=== PATIENT | female | born 1970 | race Caucasian/White ===

== ENCOUNTER 2018-03-18 06:39 | Emergency (ER) | payer OTHER, SELFPAY ==
[2018-03-18 06:45] VITALS: BP 124/57; PULSE 89; RESP 20
[2018-03-18] MEDS: EPINEPHrine 1 MG/ML AMPUL 0.3 MG IM (06:47)
[2018-03-18 06:51] VITALS: BP 121/61; PULSE 96; RESP 20; TEMP 36.8; O2SAT 99; BMI 27.3
--- NOTE | 2018-03-18 06:54 | ED_ITS ---
HPI - Allergic Reaction <Aislinn Faust DO - Last Filed: 03/18/18 18:19> General Chief complaint: Allergic Reaction Stated complaint: BREAKING OUT IN RASH, DIFFICULTY BREATHING Time Seen by Provider: 03/18/18 06:46 Source: patient Mode of arrival: ambulatory Limitations: no limitations History of Present Illness HPI narrative: Patient is a 47-year-old female who was out on her morning run she bent down to tie her shoe instantly felt like her throat was swelling lips feel big she is covered in hives. No prior history of anaphylactic reaction or allergic reaction. No nausea vomiting abdominal pain. MD complaint: allergic reaction Onset (ago): minute(s) Symptoms: rash, itching, lip swelling, difficulty swallowing, difficulty breathing, tongue swelling and hoarseness Severity: moderate Treatment prior to arrival: none Related Data Home Medications Medication Instructions Recorded Confirmed citalopram [Celexa] 10 mg PO QDAY #0 10/24/17 Previous Rx's Medication Instructions Recorded albuterol sulfate [Ventolin HFA] 2 puff INH Q4HP PRN #1 ea 02/26/18 prednisone See Label Instructions PO PER PKG 03/18/18 DIR #21 each Allergies Allergy/AdvReac Type Severity Reaction Status Date / Time No Known Drug Allergies Allergy Verified 03/18/18 08:35 Review of Systems <DO Patricia Rincon Last Filed: 03/18/18 18:19> Review of Systems All systems reviewed & are unremarkable except as noted in HPI and below Constitutional Denies chills, Denies fever(s), Denies lethargy and Denies weakness ENT Ears, Nose, Mouth, and Throat: Reports as per HPI Cardiovascular Denies chest pain, Denies irregular heart rhythm, Denies lightheadedness, Denies palpitations, Denies dyspnea, Denies dyspnea on exertion and Denies orthopnea Respiratory Denies cough, Denies dyspnea, Denies dyspnea on exertion, Denies stridor and Denies wheezing Integumentary/Breasts Reports as per HPI, Reports rash and Reports skin swelling Neurologic Denies weakness Endocrine Denies palpitations Allergic/Immunologic Denies wheezing Exam <DO Patricia Rincon Last Filed: 03/18/18 18:19> Const General: cooperative Nutritional Appearance: well nourished Orientation: alert, awake, oriented x3 and not confused Eyes Periorbital: periorbital findings abnormal bilaterally periorbital swelling and periorbital erythema Neck Neck: normal visual inspection, supple and No tracheal deviation Other: A slightly hoarse voice Resp Effort & Inspection: normal respiratory effort, no grunting, no nasal flaring and no retractions Other: No stridor, managing secretions Cardio Rate: regular rate Rhythm: regular rhythm Heart Sounds: no click, no gallops, no murmurs and no rubs Pulses: normal peripheral pulses GI Inspection: non-distended Palpation: soft, no hepatosplenomegaly, No guarding, No pulsatile mass and No tender Auscultation: normal bowel sounds Skin General: erythema, No mottling and No petechiae Other: Diffuse urticaria all over body Neuro General: alert, oriented x3, gait normal and no focal motor deficits Cranial Nerves: CN's II-XI intact bilaterally Speech: speech normal Motor: strength 5/5 throughout Sensory Exam: no sensory deficits noted MDM - Allergic Reaction <Aislinn Faust DO - Last Filed: 03/18/18 18:19> MDM Narrative Medical decision making narrative: Initial anaphylactic orders put in by myself. Patient signed out to Dr. Mora at shift change. Course <DO Patricia Rincon Last Filed: 03/18/18 18:19> Orders Ordered: Discontinued Medications Diphenhydramine HCl (Benadryl) 25 mg IV NOW ONE Stop: 03/18/18 06:47 Last Admin: 03/18/18 06:56 Dose: 25 mg Epinephrine HCl (Adrenalin) 0.3 mg IM NOW ONE Stop: 03/18/18 06:47 Last Admin: 03/18/18 06:47 Dose: 0.3 mg Famotidine (Pepcid) 20 mg in 50 mls @ 200 mls/hr IV NOW ONE Stop: 03/18/18 07:00 Last Infusion: 03/18/18 07:31 Dose: 0 mls/hr Admin: 03/18/18 06:56 Dose: 200 mls/hr Methylprednisolone (Solu-Medrol 125 Mg Vial) 125 mg IV NOW ONE Stop: 03/18/18 06:47 Last Admin: 03/18/18 06:56 Dose: 125 mg Last Vital Signs Temp 98.3 F 03/18/18 06:51 Pulse 86 03/18/18 09:17 Resp 18 03/18/18 09:17 BP 103/58 L 03/18/18 09:17 Pulse Ox 98 03/18/18 09:17 <Jonn Mora DO - Last Filed: 03/18/18 16:12> Orders Ordered: Discontinued Medications Diphenhydramine HCl (Benadryl) 25 mg IV NOW ONE Stop: 03/18/18 06:47 Last Admin: 03/18/18 06:56 Dose: 25 mg Epinephrine HCl (Adrenalin) 0.3 mg IM NOW ONE Stop: 03/18/18 06:47 Last Admin: 03/18/18 06:47 Dose: 0.3 mg Famotidine (Pepcid) 20 mg in 50 mls @ 200 mls/hr IV NOW ONE Stop: 03/18/18 07:00 Last Infusion: 03/18/18 07:31 Dose: 0 mls/hr Admin: 03/18/18 06:56 Dose: 200 mls/hr Methylprednisolone (Solu-Medrol 125 Mg Vial) 125 mg IV NOW ONE Stop: 03/18/18 06:47 Last Admin: 03/18/18 06:56 Dose: 125 mg Reevaluation(s) Reevaluation #1: Patient feeling much better after the above-stated medications. She no longer feels any tingling, fullness in her throat and denies any trouble breathing. Time: 07:37 Last Vital Signs Temp 98.3 F 03/18/18 06:51 Pulse 86 03/18/18 09:17 Resp 18 03/18/18 09:17 BP 103/58 L 03/18/18 09:17 Pulse Ox 98 03/18/18 09:17 Discharge Plan Departure Patient Disposition: Home, Self-Care Clinical Impression: Allergic reaction Discharge Date/Time: 03/18/18 09:20 Interventions: ED Discharge Assessment Last Done: 03/18/18 09:21 Instructions: DI for General Allergic Reactions Activity Restrictions/Additional Instructions: Please follow up closely with Dr. Peralta to ensure appropriate resolution of your symptoms. Additionally, it may be cohen to discuss the possibility of referral to an salsa dance instructor given the severity of your 1st allergic reaction. Take medications as directed Return to the emergency department for worsening or persistent symptoms Prescriptions: New prednisone 10 mg tablets,dose pack See Label Instructions PO PER PKG DIR Qty: 21 RF: 0 No Action citalopram [Celexa] 10 MG tablet 10 mg PO QDAY Qty: 0 RF: 0 albuterol sulfate [Ventolin HFA] 90 MCG/PUFF HFA aerosol inhaler 2 puff INH Q4HP PRNQty: 1 RF: 1 Referrals: Chelsea Peralta MD [Primary Care Provider] - Sign Out <Aislinn Faust DO - Last Filed: 03/18/18 18:19> Sign Out Provider Sign Out Attestation: Patient is signed out to Dr. Mora at shift change. Medications just administered will require re-evaluation, and close monitoring.
[2018-03-18] MEDS: diphenhydrAMINE 50 MG/ML VIAL 25 MG IV (06:56)
[2018-03-18] MEDS: FAMOTIDINE 20 MG/50 ML PIGGYBACK 200 MG IV (06:56)
[2018-03-18] MEDS: methylPREDNISolone 125 MG/2 ML VIAL IV (06:56)
[2018-03-18 07:35] VITALS: BP 119/72; PULSE 81; RESP 20; O2SAT 99
[2018-03-18 08:00] VITALS: BP 102/58; PULSE 78; RESP 14; O2SAT 98
[2018-03-18 08:35] VITALS: BP 102/66; PULSE 75; RESP 14; O2SAT 97
[2018-03-18 09:17] VITALS: BP 103/58; PULSE 86; RESP 18; O2SAT 98
== END 2018-03-18 09:20 | disposition home or self-care (01) ==
PROVIDERS: Emergency Provider Emergency Medicine; PCP Family Medicine
DX: T78.40XA Allergy, unspecified, initial encounter (principal)
CPT/HCPCS: 36591; 96372; 96374; 96375; 99284; J0171; J1200; J2930

== ENCOUNTER 2018-03-20 04:40 | Emergency (ER) | payer OTHER, SELFPAY ==
[2018-03-20 04:51] VITALS: BP 137/70; PULSE 87; RESP 17; TEMP 36.7; O2SAT 92
[2018-03-20 04:58] VITALS: BP 137/70; PULSE 86; RESP 16; TEMP 36.7; O2SAT 96; BMI 27.3
[2018-03-20] MEDS: methylPREDNISolone 125 MG/2 ML VIAL IV (05:04)
--- NOTE | 2018-03-20 05:10 | ED.ALLEREA ---
HPI - Allergic Reaction General Chief complaint: Allergic Reaction Stated complaint: ALLERGIC REACTION Time Seen by Provider: 03/20/18 04:57 Source: patient, RN notes reviewed and old records reviewed Mode of arrival: ambulatory Limitations: no limitations History of Present Illness HPI narrative: Patient is a 47-year-old female who presents with allergic reaction. This is the 2nd day in a row. She just started using an inhaler before running. Yesterday she developed tongue swelling lip swelling and hives she came to the emergency department where she was evaluated. She was discharged with an EpiPen and prednisone. She used her inhaler again this morning and was informed miles of running she developed the same symptoms. This time she gave herself an EpiPen as took Benadryl and came to the emergency department. She has turned feel better but she has hives all over on and had swelling in her throat and tongue. The relatively new. She also had p.m. better of both days but she has never had a problem with penis the past. MD complaint: allergic reaction, hives and facial swelling Onset (ago): minute(s) Exposure: other (Albuterol inhaler) Related Data Home Medications Medication Instructions Recorded Confirmed citalopram [Celexa] 10 mg PO QDAY #0 10/24/17 Previous Rx's Medication Instructions Recorded albuterol sulfate [Ventolin HFA] 2 puff INH Q4HP PRN #1 ea 02/26/18 prednisone See Label Instructions PO PER PKG 03/18/18 DIR #21 each epinephrine 0.3 mg/0.3 mL 0.3 mg IM ONCE #2 each 03/19/18 injection, auto-injector epinephrine 0.3 mg IM Q10M PRN #2 each 03/20/18 Allergies Allergy/AdvReac Type Severity Reaction Status Date / Time No Known Drug Allergies Allergy Verified 03/18/18 08:35 Review of Systems Review of Systems All systems reviewed & are unremarkable except as noted in HPI and below Constitutional Reports system reviewed and no additional complaints, except as docu Eyes Reports irritation and Reports itchy eyes ENT Ears, Nose, Mouth, and Throat: Reports system reviewed and no additional complaints, except as docu, Reports hoarseness and Reports lip swelling Cardiovascular Denies chest pain at rest and Denies dyspnea on exertion Respiratory Denies dyspnea on exertion, Denies stridor and Denies wheezing Allergic/Immunologic Reports itchy eyes, Reports lip swelling and Denies wheezing [facility] Medical History Exercise-induced asthma (Acute) Surgical History Status post delivery (08/11/90) Status post colonoscopy Status post colonoscopy Social History Smoking Status: Never smoker Exam Const General: cooperative and well developed Nutritional Appearance: well nourished Orientation: alert, awake, oriented x3 and not confused Eyes Periorbital: periorbital findings abnormal (Swelling) bilaterally Conjunctivae: conjunctivae normal Pupils: PERRL EOM: EOM intact bilaterally Neck Neck: normal visual inspection, full ROM and trachea midline Resp Effort & Inspection: normal respiratory effort and able to speak in complete sentences Auscultation: clear to auscultation bilaterally, no rhonchi and no wheezes Cardio Rate: regular rate Rhythm: regular rhythm Heart Sounds: no click, no gallops, no murmurs and no rubs Pulses: normal peripheral pulses GI Inspection: non-distended Palpation: soft, no hepatosplenomegaly, No guarding, No pulsatile mass and No tender Auscultation: normal bowel sounds Skin Rashes: rashes noted Course Orders Ordered: Discontinued Medications Methylprednisolone (Solu-Medrol 125 Mg Vial) 125 mg IV NOW ONE Stop: 03/20/18 04:58 Last Admin: 03/20/18 05:04 Dose: 125 mg Last Vital Signs Temp 98.0 F 03/20/18 04:58 Pulse 72 03/20/18 06:36 Resp 13 03/20/18 06:36 BP 110/60 03/20/18 06:36 Pulse Ox 99 03/20/18 06:36 MDM - Allergic Reaction MDM Narrative Medical decision making narrative: Unknown exactly what patient is allergic to, she would definitely benefit from testing. It is possible it is from the albuterol inhaler or seasonal pollen allergies. sHe heart has a prescription for prednisone. She has been monitored she is feeling much better. Differential Diagnosis Differential diagnosis: Likely anaphylaxis, angioedema, adverse reaction to drug and urticaria Discharge Plan Departure Patient Disposition: Home, Self-Care Clinical Impression: Allergic reaction Discharge Date/Time: 03/20/18 06:38 Interventions: ED Discharge Assessment Last Done: 03/20/18 06:36 Instructions: Anaphylaxis Activity Restrictions/Additional Instructions: *You have been diagnosed with anaphylactic reaction *What to do: You need allergy testing, for now I recommend not using her albuterol inhaler *Take medications as directed -start prednisone tomorrow, and taper down as previously instructed, start at day 1 and follow the instructions *Follow up with your primary care provider in 2-3 days *Return to ER if you should have after use EpiPen, increased difficulty breathing, swelling in lips and tongue or any new, worsening or concerning symptoms Prescriptions: New epinephrine 0.3 mg/0.3 mL auto-injector 0.3 mg IM Q10M PRN (Reason: anaphylaxis) Qty: 2 RF: 0 No Action citalopram [Celexa] 10 MG tablet 10 mg PO QDAY Qty: 0 RF: 0 albuterol sulfate [Ventolin HFA] 90 MCG/PUFF HFA aerosol inhaler 2 puff INH Q4HP PRNQty: 1 RF: 1 epinephrine 0.3 mg/0.3 mL auto-injector 0.3 mg IM ONCE Qty: 2 RF: 3 prednisone 10 mg tablets,dose pack See Label Instructions PO PER PKG DIR Qty: 21 RF: 0 Referrals: Chelsea Peralta MD [Primary Care Provider] -
[2018-03-20 05:30] VITALS: BP 115/70; PULSE 75; RESP 17; O2SAT 93
[2018-03-20 06:02] VITALS: BP 108/64; PULSE 80; RESP 21; O2SAT 96
--- NOTE | 2018-03-20 06:04 | PC.NURSE ---
Pt feeling better, swelling of lips appears to be gone.
[2018-03-20 06:32] VITALS: BP 110/60; PULSE 77; RESP 16; O2SAT 99
[2018-03-20 06:36] VITALS: BP 110/60; PULSE 72; RESP 13; O2SAT 99
== END 2018-03-20 06:38 | disposition home or self-care (01) ==
PROVIDERS: Emergency Provider Emergency Medicine; PCP Family Medicine
DX: T78.2XXA Anaphylactic shock, unspecified, initial encounter (principal)
CPT/HCPCS: 36591; 96374; 99283; 99284; J2930

== ENCOUNTER → 2018-03-22 11:05 | Outpatient (CLI) | payer OTHER, SELFPAY | PROVIDERS: PCP Family Medicine; Visit Provider Allergy & Immunology | DX: T78.2XXA Anaphylactic shock, unspecified, initial encounter (principal) | CPT/HCPCS: 36415; 83520 ==

== ENCOUNTER → 2019-02-07 07:39 | Outpatient (CLI) | payer OTHER, SELFPAY ==
--- NOTE | 2019-02-07 | DI.MG.S_ITS ---
BILATERAL DIGITAL SCREENING MAMMOGRAM 3D/2D WITH CAD: 02/07/2019 CLINICAL: Routine screening. Family history of breast cancer. Comparison is made to exams dated: 12/28/2017 mammogram, 08/06/2015 mammogram, and 07/31/2014 mammogram - [facility]. The tissue of both breasts is extremely dense, which lowers the sensitivity of mammography. Current study was also evaluated with a Computer Aided Detection (CAD) system. No significant masses, calcifications, or other findings are seen in either breast. There has been no significant interval change. IMPRESSION: NEGATIVE There is no mammographic evidence of malignancy. A 1 year screening mammogram is recommended. This exam was interpreted at Station ID: [id number]. NOTE: For mammograms, a report in lay terms will be sent to the patient. Approximately 15% of breast malignancies will not be visualized mammographically. In the management of a palpable breast mass, a negative mammogram must not discourage biopsy of a clinically suspicious lesion. Electronically Signed By: Benton guevara/carol:02/07/2019 11:52:50 letter sent: Normal Exam ACR BI-RADS Category 1: Negative [id number]
== END ==
PROVIDERS: PCP Family Medicine; Visit Provider Family Medicine
DX: Z12.31 Encounter for screening mammogram for malignant neoplasm of breast (principal); Z80.3 Family history of malignant neoplasm of breast
CPT/HCPCS: 77063; 77067

== ENCOUNTER 2019-12-30 23:52 | Emergency (ER) | payer OTHER, SELFPAY ==
[2019-12-31 00:08] VITALS: BP 126/75; PULSE 66; RESP 12; TEMP 36.8; O2SAT 97; BMI 25.0
--- NOTE | 2019-12-31 00:18 | ED_ITS ---
HPI - General Adult General Chief complaint: Toxicology Problem Stated complaint: Overdose Time Seen by Provider: 12/30/19 23:57 Source: family () and EMS Mode of arrival: EMS Limitations: altered mental status History of Present Illness HPI narrative: Patient is a 49-year-old female who is brought in by EMS for concerns of an overdose. Patient has been who is at bedside was the 1 who called 911. He stated that he was asleep in received a call from another relative saying that his was texting her and that her text were not making any sense. He stated that he knew that the patient was having some issues with her son. He stated that the patient ?stumbled ?into the bedroom and was not acting normal. He stated that she did have 1 drink this evening. He was concerned that she potentially took some of her citalopram but he was unsure. Upon arrival patient unable to provide any HPI. Patient has been stated that last year she had a similar episode like this where she was evaluated. Related Data Previous Rx's Medication Instructions Recorded albuterol sulfate [Ventolin HFA] 2 puff INH Q4HP PRN #1 ea 02/26/18 epinephrine 0.3 mg/0.3 mL 0.3 mg IM Q10M PRN #2 each 06/24/18 injection, auto-injector clotrimazole-betamethasone 1 1 applictn TOP BID #45 gram 01/07/ %-0.05 % topical cream citalopram 10 mg tablet See Rx Instructions .ROUTE 11/28/19 .COMPLEX #90 tablet Allergies Allergy/AdvReac Type Severity Reaction Status Date / Time No Known Drug Allergies Allergy Verified 03/18/18 08:35 Review of Systems Review of Systems ROS Unobtainable: Unobtainable due to mental status/LOC Patient History Medical History Acne (Chronic 1984) Anemia (Resolved 1987) Chicken pox (Resolved) Chronic back pain (Chronic 1989) Colon polyps (Resolved 2010) CTS (carpal tunnel syndrome) (Chronic 1999) Exercise-induced asthma (Chronic) Foot pain (Chronic 2009) Hayfever (Chronic 2010) Irregular periods/menstrual cycles (Chronic) Painful menstrual periods (Chronic) Shoulder pain (Chronic 2009) Surgical History (Updated 08/15/18 @ 14:53 by Evangelina Mckeon) Anesthesia (Resolved) Status post delivery (Resolved 08/11/90) Status post colonoscopy (Resolved 01/09/11) Status post colonoscopy (Resolved 10/11/15) Social History Smoking Status: Never smoker Smoking Status: Never smoker alcohol intake frequency: 0-2 drinks per day Substance Use Type: does not use Exam Initial Vital Signs Initial Vital Signs: Vital Signs Temperature 98.2 F 12/31/19 00:08 Pulse Rate 66 12/31/19 00:08 Respiratory Rate 12 12/31/19 00:08 Blood Pressure 126/75 12/31/19 00:08 Pulse Oximetry 97 12/31/19 00:08 Const General: No cooperative, well groomed and No acute distress HENMT Head: normal to inspection and normocephalic Resp Effort & Inspection: normal respiratory effort Auscultation: clear to auscultation bilaterally Cardio Rate: regular rate Rhythm: regular rhythm Skin Lesions: no lesions Rashes: no rashes Extrem General: normal to inspection and capillary refill normal Scores GCS Fisher coma scale verbal response: Sounds Fisher coma scale motor response: Localising Course Orders Ordered: ED Orders 12/30/19 23:57 Acetaminophen Stat Complete Blood Count AUTO DIFF Stat 12/30/19 23:58 Comprehensive Metabolic Panel Stat Ethanol (ETOH) Stat Lipase Stat Test Urine Stat Salicylate Stat Thyroid Stimulating Hormone Stat 12/31/19 03:00 Ethanol (ETOH) Stat 12/31/19 03:20 Urinalysis and Microscopic Stat Urine Drug Screen, Rapid Stat Vital Signs Vital signs: Vital Signs - 8 hr 12/31/19 00:08 12/31/19 02:42 Temperature 98.2 F Pulse Rate 66 65 Respiratory Rate 12 13 Blood Pressure 126/75 Blood Pressure [Left Arm] 96/51 L Pulse Oximetry 97 95 Medical Decision Making Lab Data Lab results reviewed: Yes I reviewed the patient's lab results. Result diagrams: 12/31/19 00:14 12/31/19 00:14 Labs: Lab Results 12/31/19 12/31/19 12/31/19 Range/Units 00:14 00:14 00:14 WBC 6.9 (4.5-11.0) X10^3/uL RBC 4.08 (4.0-5.2) X10^6/uL Hgb 12.9 (12.0-16.0) g/dL Hct 37.9 (36-46) % MCV 92.8 (80-100) fL MCH 31.5 (26-34) PG MCHC 34.0 (30-36) % RDW 13.3 (11.6-14.8) % Plt Count 278 (150-400) X10^3/uL Neut % (Auto) 53.1 (50-75) % Lymph % (Auto) 33.6 (25-40) % Bartholomew % (Auto) 9.3 (3-14) % Eos % (Auto) 3.5 (2-4) % Baso % (Auto) 0.5 (0-2) % Neut # (Auto) 3700 (7027-1158) /uL Lymph # (Auto) 2300 (8351-9590) /uL Bartholomew # (Auto) 600 (0-900) /uL Eos # (Auto) 200 (0-450) /uL Baso # (Auto) 0 (0-100) /uL Sodium 144 (137-145) mmol/L Potassium 3.4 (3.4-5.1) mmol/L Chloride 106 (98-107) mmol/L Carbon Dioxide 26 (22-32) mmol/L BUN 19 H (7-17) mg/dL Creatinine 1.00 (0.52-1.04) mg/dL Estimated GFR 58.9 L (>60) mL/min BUN/Creatinine Ratio 19.0 (6-22) Glucose 108 H (70-100) mg/dL Calcium 9.6 (8.4-10.2) mg/dL Total Bilirubin 0.2 (0.2-1.3) mg/dL AST 23 (14-36) IU/L ALT 17 (<35) IU/L Alkaline Phosphatase 42 (38-126) U/L Total Protein 7.7 (6.3-8.2) g/dL Albumin 4.7 (3.5-5.0) g/dL Globulin 3.0 (1.7-4.1) g/dL Albumin/Globulin Ratio 1.6 (1.0-2.8) Lipase 70 (23-300) U/L TSH (0.47-4.68) uIU/mL Urine Color Urine Appearance Urine pH (4.5-8.0) Ur Specific [place] (1.000-1.035) Urine Protein (Negative) Urine Glucose (UA) (Negative) g/dL Urine Ketones (NEGATIVE) Urine Occult Blood (Negative) Urine Nitrate (Negative) Urine Bilirubin (NEGATIVE) Urine Urobilinogen (0.2) E.U./dL Ur Leukocyte Esterase (NEGATIVE) Urine RBC (0-5/HPF) Urine WBC (0-5/HPF) Ur Squamous Epith Cells (0-5/HPF) Urine Bacteria (None) Urine Mucus (Negative) Ur Culture Indicated? Urine Test (Negative) Salicylates < 1.0 (<20) mg/dL U Opiates 300ng/mL cut (Negative) Ur Oxycodone Screen (Negative) Urine Methadone Screen (Negative) Acetaminophen < 10 L (10-30) ug/mL Ur Barbiturates Screen (Negative) U Tricyclic Antidepress (Negative) Ur Phencyclidine Scrn (Negative) Ur Amphetamines Screen (Negative) U Methamphetamines Scrn (Negative) Ur MDMA Scrn (Ecstasy) (Negative) U Benzodiazepines Scrn (Negative) Urine Cocaine Screen (Negative) U Marijuana (THC) Screen (Negative) Ethyl Alcohol 138 H ( - 10) mg/dL 12/31/19 12/31/19 12/31/19 Range/Units 00:14 03:00 03:20 WBC (4.5-11.0) X10^3/uL RBC (4.0-5.2) X10^6/uL Hgb (12.0-16.0) g/dL Hct (36-46) % MCV (80-100) fL MCH (26-34) PG MCHC (30-36) % RDW (11.6-14.8) % Plt Count (150-400) X10^3/uL Neut % (Auto) (50-75) % Lymph % (Auto) (25-40) % Bartholomew % (Auto) (3-14) % Eos % (Auto) (2-4) % Baso % (Auto) (0-2) % Neut # (Auto) (7941-0038) /uL Lymph # (Auto) (8107-1199) /uL Bartholomew # (Auto) (0-900) /uL Eos # (Auto) (0-450) /uL Baso # (Auto) (0-100) /uL Sodium (137-145) mmol/L Potassium (3.4-5.1) mmol/L Chloride (98-107) mmol/L Carbon Dioxide (22-32) mmol/L BUN (7-17) mg/dL Creatinine (0.52-1.04) mg/dL Estimated GFR (>60) mL/min BUN/Creatinine Ratio (6-22) Glucose (70-100) mg/dL Calcium (8.4-10.2) mg/dL Total Bilirubin (0.2-1.3) mg/dL AST (14-36) IU/L ALT (<35) IU/L Alkaline Phosphatase (38-126) U/L Total Protein (6.3-8.2) g/dL Albumin (3.5-5.0) g/dL Globulin (1.7-4.1) g/dL Albumin/Globulin Ratio (1.0-2.8) Lipase (23-300) U/L TSH 3.95 (0.47-4.68) uIU/mL Urine Color Urine Appearance Urine pH (4.5-8.0) Ur Specific [place] (1.000-1.035) Urine Protein (Negative) Urine Glucose (UA) (Negative) g/dL Urine Ketones (NEGATIVE) Urine Occult Blood (Negative) Urine Nitrate (Negative) Urine Bilirubin (NEGATIVE) Urine Urobilinogen (0.2) E.U./dL Ur Leukocyte Esterase (NEGATIVE) Urine RBC (0-5/HPF) Urine WBC (0-5/HPF) Ur Squamous Epith Cells (0-5/HPF) Urine Bacteria (None) Urine Mucus (Negative) Ur Culture Indicated? Urine Test Negative (Negative) Salicylates (<20) mg/dL U Opiates 300ng/mL cut (Negative) Ur Oxycodone Screen (Negative) Urine Methadone Screen (Negative) Acetaminophen (10-30) ug/mL Ur Barbiturates Screen (Negative) U Tricyclic Antidepress (Negative) Ur Phencyclidine Scrn (Negative) Ur Amphetamines Screen (Negative) U Methamphetamines Scrn (Negative) Ur MDMA Scrn (Ecstasy) (Negative) U Benzodiazepines Scrn (Negative) Urine Cocaine Screen (Negative) U Marijuana (THC) Screen (Negative) Ethyl Alcohol 76 H ( - 10) mg/dL 02/26/20 02/26/20 Range/Units 03:20 03:20 WBC (4.5-11.0) X10^3/uL RBC (4.0-5.2) X10^6/uL Hgb (12.0-16.0) g/dL Hct (36-46) % MCV (80-100) fL MCH (26-34) PG MCHC (30-36) % RDW (11.6-14.8) % Plt Count (150-400) X10^3/uL Neut % (Auto) (50-75) % Lymph % (Auto) (25-40) % Bartholomew % (Auto) (3-14) % Eos % (Auto) (2-4) % Baso % (Auto) (0-2) % Neut # (Auto) (9359-2150) /uL Lymph # (Auto) (8154-5104) /uL Bartholomew # (Auto) (0-900) /uL Eos # (Auto) (0-450) /uL Baso # (Auto) (0-100) /uL Sodium (137-145) mmol/L Potassium (3.4-5.1) mmol/L Chloride (98-107) mmol/L Carbon Dioxide (22-32) mmol/L BUN (7-17) mg/dL Creatinine (0.52-1.04) mg/dL Estimated GFR (>60) mL/min BUN/Creatinine Ratio (6-22) Glucose (70-100) mg/dL Calcium (8.4-10.2) mg/dL Total Bilirubin (0.2-1.3) mg/dL AST (14-36) IU/L ALT (<35) IU/L Alkaline Phosphatase (38-126) U/L Total Protein (6.3-8.2) g/dL Albumin (3.5-5.0) g/dL Globulin (1.7-4.1) g/dL Albumin/Globulin Ratio (1.0-2.8) Lipase (23-300) U/L TSH (0.47-4.68) uIU/mL Urine Color Yellow Urine Appearance Clear Urine pH 5.0 (4.5-8.0) Ur Specific [place] 1.015 (1.000-1.035) Urine Protein Negative (Negative) Urine Glucose (UA) Negative (Negative) g/dL Urine Ketones Negative (NEGATIVE) Urine Occult Blood Negative (Negative) Urine Nitrate Negative (Negative) Urine Bilirubin Negative (NEGATIVE) Urine Urobilinogen 0.2 (0.2) E.U./dL Ur Leukocyte Esterase Negative (NEGATIVE) Urine RBC None seen (0-5/HPF) Urine WBC 0-1/hpf (0-5/HPF) Ur Squamous Epith Cells 1-5 /hpf (0-5/HPF) Urine Bacteria Moderate (10-30) H (None) Urine Mucus 1+ H (Negative) Ur Culture Indicated? Cult not indicated Urine Test (Negative) Salicylates (<20) mg/dL U Opiates 300ng/mL cut Negative (Negative) Ur Oxycodone Screen Negative (Negative) Urine Methadone Screen Negative (Negative) Acetaminophen (10-30) ug/mL Ur Barbiturates Screen Negative (Negative) U Tricyclic Antidepress Negative (Negative) Ur Phencyclidine Scrn Negative (Negative) Ur Amphetamines Screen Negative (Negative) U Methamphetamines Scrn Negative (Negative) Ur MDMA Scrn (Ecstasy) Negative (Negative) U Benzodiazepines Scrn Negative (Negative) Urine Cocaine Screen Negative (Negative) U Marijuana (THC) Screen Negative (Negative) Ethyl Alcohol ( - 10) mg/dL MDM Narrative Medical decision making narrative: Patient on loosely arrived not providing any information. She had no localizing neurologic signs. She did have a pill container of Citalopram that on the bottle had initially had 30 tablets. Twenty tablets remain although we are not positive whether not she actually took these medications. She was observed in the emergency department to her alcohol level was below legal limit. She was able to ambulate to the bathroom. She was more cooperative. She stated that she was having a bad night. She stated that she did drink alcohol. She did state that she took her Citalopram and did take more than what was prescribed. She stated that she was just having a bad evening. Upon the 2nd evaluation patient stated that she was not suicidal. She did not want admitted to the hospital. I do not feel that she meets criteria for an involuntary admission. Her is at bedside. He stated that he was concerned about her actions this evening. Plan OB is to discharge the patient home under the care of her . They were going to contact her primary provider tomorrow. They were also given instructions for follow-up with behavior health here at the hospital. They were informed that they could return to the emergency department at any point for new or worsening symptoms Discharge Plan Departure Patient Disposition: Home Clinical Impression: Alcoholic intoxication Qualifiers: Complication of substance-induced condition: with unspecified complication Qualified Code(s): F10.929 - Alcohol use, unspecified with intoxication, unspecified Overdose Qualifiers: Encounter type: initial encounter Injury intent: undetermined intent Qualified Code(s): T50.904A - Poisoning by unspecified drugs, medicaments and biological substances, undetermined, initial encounter Depression Qualifiers: Depression Type: unspecified Qualified Code(s): F32.9 - Major depressive disorder, single episode, unspecified Instructions: Depression Activity Restrictions/Additional Instructions: I recommend tomorrow you contact your primary doctor's office for follow-up. You can also contact the [facility]. Their phone numbers [phone]. They can help you with establishing a follow- up appointment. Return to the emergency department for any new or worsening s ymptoms Prescriptions: No Action albuterol sulfate [Ventolin HFA] 90 MCG/PUFF HFA aerosol inhaler 2 puff INH Q4HP PRNQty: 1 RF: 1 epinephrine 0.3 mg/0.3 mL auto-injector 0.3 mg IM Q10M PRN (Reason: anaphylaxis) Qty: 2 RF: 0 clotrimazole-betamethasone 1-0.05 % cream 1 applictn TOP BID Qty: 45 RF: 2 citalopram 10 mg tablet See Rx Instructions .ROUTE .COMPLEX Qty: 90 RF: 0 Referrals: Chelsea Peralta MD [Primary Care Provider] -
[2019-12-31 00:40] LABS: Acetaminophen < 10 ug/mL (10-30)
[2019-12-31 00:41] LABS: Alanine Aminotransferase 17 IU/L (<35); Albumin 4.7 g/dL (3.5-5.0); Albumin Globulin Ratio 1.6 (1.0-2.8); Alkaline Phosphatase 42 U/L (38-126); Aspartate Aminotransferase 23 IU/L (14-36); Bilirubin Total 0.2 mg/dL (0.2-1.3); Blood Urea Nitrogen 19 mg/dL (7-17); Calcium 9.6 mg/dL (8.4-10.2); Carbon Dioxide 26 mmol/L (22-32); Chloride 106 mmol/L (98-107); Estimated Glomerular Filt Rate 58.9 mL/min (>60); Ethanol (ETOH) 138 mg/dL; Glucose 108 mg/dL (70-100); HEMOLYSIS < 15 (0-50); Lipase 70 U/L (23-300); Potassium 3.4 mmol/L (3.4-5.1); Salicylate < 1.0 mg/dL (<20); Sodium 144 mmol/L (137-145); Total Protein 7.7 g/dL (6.3-8.2)
[2019-12-31 00:45] LABS: Add Manual Diff / Slide Review NO; Basophils Absolute Auto 0 /uL (0-100); Basophils Percent Auto 0.5 % (0-2); Eosinophils Absolute Auto 200 /uL (0-450); Eosinophils Percent Auto 3.5 % (2-4); Hematocrit 37.9 % (36-46); Hemoglobin 12.9 g/dL (12.0-16.0); Lymphocytes Absolute Auto 2300 /uL (1100-4500); Lymphocytes Percent Auto 33.6 % (25-40); Mean Corpuscular Hemoglobin 31.5 PG (26-34); Mean Corpuscular Volume 92.8 fL (80-100); Monocytes Absolute Auto 600 /uL (0-900); Monocytes Percent Auto 9.3 % (3-14); Neutrophils Absolute Auto 3700 /uL (1500-7000); Neutrophils Percent Auto 53.1 % (50-75); Platelet Count 278 X10^3/uL (150-400); Red Blood Cell Count 4.08 X10^6/uL (4.0-5.2); Red Cell Distribution Width 13.3 % (11.6-14.8); White Blood Cell Count 6.9 X10^3/uL (4.5-11.0)
--- NOTE | 2019-12-31 01:01 | PC.NURSE ---
pts family is in room, quietly standing around patient
[2019-12-31 01:16] LABS: Thyroid Stimulating Hormone 3.95 uIU/mL (0.47-4.68)
--- NOTE | 2019-12-31 02:31 | PC.NURSE ---
Pt more responsive. able to answer more questions. When asked what happened tonight, patient stated life. When asked why she had taken the citalapram, she stated I want to the pain to stop. She stated her pain in located in her heart and stomach. was asked if it was a physical or emotional pain and she didn't respond. When asked if she was trying to commit suicide pt michael in and would no longer answer questions. Pt tearful at time of answering question.
[2019-12-31 02:42] VITALS: BP 96/51; PULSE 65; RESP 13; O2SAT 95
[2019-12-31 03:18] LABS: Ethanol (ETOH) 76 mg/dL
[2019-12-31 03:23] LABS: RBC Urine None Seen (0-5/HPF)
[2019-12-31 03:25] LABS: Appearance Urine UA CLEAR; Bilirubin Urine UA NEGATIVE (NEGATIVE); Color Urine UA YELLOW; Glucose Urine UA NEGATIVE (Negative); Ketones Urine UA NEGATIVE (NEGATIVE); Leukocyte Esterase Urine UA NEGATIVE (NEGATIVE); Nitrite Urine UA NEGATIVE (Negative); Occult Blood Urine UA NEGATIVE (Negative); Protein Urine UA NEGATIVE (Negative); Specific Gravity Urine UA 1.015 (1.000-1.035); Urobilinogen Urine UA 0.2 E.U./dL (0.2)
[2019-12-31 03:27] LABS: Pregnancy Test Urine Negative (Negative)
[2019-12-31 03:28] LABS: UR Morphine/Opiate cutoff 300 Negative (Negative); Ur Creatinine Normal (Normal); Ur Specific Gravity Normal (Normal); Urine Amphetamines Negative (Negative); Urine Barbiturates Negative (Negative); Urine Benzodiazepines Negative (Negative); Urine Cocaine Negative (Negative); Urine MDMA Negative (Negative); Urine Methadone Negative (Negative); Urine Methamphetamines Negative (Negative); Urine Oxycodone Negative (Negative); Urine Phencyclidine Negative (Negative); Urine Tetrahydrocannabinol Negative (Negative); Urine Tricyclic Antidepressant Negative (Negative); Urine pH Normal (Normal)
[2019-12-31 03:31] LABS: Bacteria Urine Moderate (10-30); Culture Indicated Urine Cult Not Indicated; Mucus Urine 1+ (Negative); Squamous Epithelial Cell Urine 1-5 /HPF (0-5/HPF); WBC Urine 0-1/HPF (0-5/HPF)
[2019-12-31 03:46] VITALS: BP 101/53; PULSE 64; RESP 13; O2SAT 97
== END 2019-12-31 03:47 | disposition home or self-care (01) ==
PROVIDERS: Emergency Provider Emergency Medicine; PCP Family Medicine
DX: F10.929 Alcohol use, unspecified with intoxication, unspecified (principal); T50.904A Poisoning by unspecified drugs, medicaments and biological substances, undetermined, initial encounter; F32.9 Major depressive disorder, single episode, unspecified
CPT/HCPCS: 36415; 80053; 80305; 80320; 80329; 81001; 81025; 83690; 84443; 85025; 99284; G0480

== ENCOUNTER 2020-04-10 19:45 | Emergency (ER) | payer OTHER, SELFPAY ==
[2020-04-10 19:50] VITALS: BP 120/60; PULSE 60; RESP 18; TEMP 36.9; O2SAT 98; BMI 26.6
--- NOTE | 2020-04-10 19:56 | ED_ITS ---
HPI - Back Pain/Injury General Chief Complaint: Back Pain/Injury Stated Complaint: Fell and Hit Back on Table Time Seen by Provider: 04/10/20 19:47 Source: patient Mode of arrival: Ambulatory Limitations: no limitations History of Present Illness HPI Narrative: 49F non smoker with history of anxiety presents with her and the chief complaint right upper back pain after a fall earlier today. She states that she was attempting to walk up the companionway of her boat and stumbled backwards from the first step and fell back into the table. She denies any head or neck pain. She has suffered no loss of consciousness and has had no nausea or vomiting. states she is acting at her baseline. Her upper back pain hurts worse with motion and improves with rest. She denies any extremity injury. She has had no shortness of breath nor cough or hemoptysis. MD Complaint: back pain, back injury and fall Onset (ago): hour(s) Duration: constant Similar Symptoms Previously: No Location: thoracic spine Severity: mild Quality: aching Radiation: none Relieving factors: immobilization Exacerbating factors: movement Context: fall Associated symptoms: denies other symptoms Related Data Previous Rx's Medication Instructions Recorded albuterol sulfate [Ventolin HFA] 2 puff INH Q4HP PRN #1 ea 02/26/18 epinephrine 0.3 mg/0.3 mL 0.3 mg IM Q10M PRN #2 each 06/24/18 injection, auto-injector clotrimazole-betamethasone 1 1 applictn TOP BID #45 gram 01/07/19 %-0.05 % topical cream citalopram 20 mg tablet 20 mg PO DAILY #90 tab 02/26/20 hydroxyzine HCl 25 mg tablet 25 mg PO TID PRN #60 tab 03/23/20 ketorolac 10 mg PO Q6H PRN #14 tab 04/10/20 lidocaine [Lidoderm] 1 patch TOP DAILY #15 each 04/10/20 Allergies Allergy/AdvReac Type Severity Reaction Status Date / Time No Known Drug Allergies Allergy Verified 04/10/20 19:50 Review of Systems Constitutional Constitutional: Denies chills, Denies fatigue, Denies fever(s), Denies frequent falls, Denies lethargy and Denies weakness Eyes Eyes: Denies change in vision, Denies eye discharge, Denies irritation and Denies loss of vision ENT Ears, Nose, Mouth, and Throat: Denies change in voice, Denies dizziness, Denies neck pain, Denies sore throat and Denies throat swelling Cardiovascular Cardiovascular: Denies chest pain, Denies irregular heart rhythm, Denies lightheadedness, Denies palpitations, Denies dyspnea, Denies dyspnea on exertion and Denies orthopnea Respiratory Respiratory: Denies cough, Denies dyspnea, Denies dyspnea on exertion and Denies wheezing Gastrointestinal Gastrointestinal: Denies abdominal pain, Denies change in bowel habits, Denies diarrhea, Denies nausea and Denies vomiting Musculoskeletal Musculoskeletal: Reports back pain, Denies neck pain and Denies numbness Integumentary/Breasts Skin/Breast: Denies pruritus, Denies erythema, Denies rash and Denies wounds Neurologic Neurologic: Denies behavioral changes, Denies confusion, Denies dizziness, Denies frequent falls, Denies loss of vision, Denies numbness and Denies weakness Psychiatric Psychiatric: Denies anxiety, Denies behavioral changes, Denies confusion, Denies depression, Denies homicidal ideation and Denies suicidal ideation Endocrine Endocrine: Denies fatigue, Denies flushing and Denies palpitations Hematologic/Lymphatic Hematologic/Lymphatic: Denies easy bruising Allergic/Immunologic Allergic/Immunologic: Denies urticaria, Denies throat swelling and Denies wheezing Patient History Medical History Acne (Chronic 1984) Anemia (Resolved 1987) Chicken pox (Resolved) Chronic back pain (Chronic 1989) Colon polyps (Resolved 2010) CTS (carpal tunnel syndrome) (Chronic 1999) Exercise-induced asthma (Chronic) Foot pain (Chronic 2009) Hayfever (Chronic 2010) Irregular periods/menstrual cycles (Chronic) Painful menstrual periods (Chronic) Shoulder pain (Chronic 2009) Surgical History Anesthesia (Resolved) Status post delivery (Resolved 08/11/90) Status post colonoscopy (Resolved 01/09/11) Status post colonoscopy (Resolved 10/11/15) Family History Grandmother Lung cancer Heart disease Hypertension High cholesterol Stroke Grandfather Heart disease Hypertension High cholesterol Diabetes mellitus Brother No problems noted. Father No problems noted. Grandfather Cirrhosis Mother No problems noted. Grandmother Colon cancer Breast cancer Social History Smoking Status: Never smoker Smoking Status: Never smoker alcohol intake frequency: 0-2 drinks per day Substance Use Type: does not use Exam Narrative Exam Narrative: GENERAL: [49] year old patient appears stated age. Well-n ourished, well-developed patient, in mild distress. GCS 15 HEAD: Atraumatic. Normocephalic. EYES: Pupils equal round and reactive. Extraocular motions intact. No scleral icterus. No injection or drainage. ENT: Nose without bleeding, purulent drainage. Throat without erythema, tonsillar hypertrophy or exudate. Airway patent. NECK: Trachea midline. Non tender CARDIOVASCULAR: Regular rate and rhythm without murmurs, gallops, or rubs. RESPIRATORY: Clear to auscultation. Breath sounds equal bilaterally. No wheezes, rales, or rhonchi. GASTROINTESTINAL: Abdomen soft, non-tender, nondistended. EXTREMITIES: No edema or joint tenderness. BACK: Mild tenderness to posterior thoracic ribs just to the right of midline. Minimal tenderness to palpation. No swelling, ecchymosis, crepitance. Mild romeo thema NEURO: AOx3. SKIN: No rash or erythema of visible areas other than that which was measured above Initial Vital Signs Initial Vital Signs: Vital Signs Temperature 98.5 F 04/10/20 19:50 Pulse Rate 60 04/10/20 19:50 Respiratory Rate 18 04/10/20 19:50 Blood Pressure 120/60 04/10/20 19:50 Pulse Oximetry 98 04/10/20 19:50 Course Orders Ordered: ED Orders 04/10/20 20:22 XR thoracic spine 3V Stat 04/10/20 21:10 Urinalysis and Microscopic Stat Discontinued Medications Ketorolac Tromethamine (Toradol) 60 mg IM NOW ONE Stop: 04/10/20 21:30 Last Admin: 04/10/20 21:39 Dose: 60 mg Documented by: DANA Lidocaine (Lidoderm) 1 each TOP NOW ONE Stop: 04/10/20 21:30 Last Admin: 04/10/20 21:39 Dose: 1 each Documented by: DANA Vital Signs Vital signs: Vital Signs - 8 hr 04/10/20 19:50 Temperature 98.5 F Pulse Rate 60 Respiratory Rate 18 Blood Pressure 120/60 Pulse Oximetry 98 MDM - Back Pain/Injury Lab Data Labs: Lab Results 04/10/20 Range/Units 21:10 Urine Color Yellow Urine Appearance Clear Urine pH 5.0 (4.5-8.0) Ur Specific [place] >=1.030 H (1.000-1.035) Urine Protein Negative (Negative) Urine Glucose (UA) Negative (Negative) g/dL Urine Ketones Trace H (NEGATIVE) Urine Occult Blood Negative (Negative) Urine Nitrate Negative (Negative) Urine Bilirubin Negative (NEGATIVE) Urine Urobilinogen 0.2 (0.2) E.U./dL Ur Leukocyte Esterase Negative (NEGATIVE) Urine RBC None seen (0-5/HPF) Urine WBC 0-1/hpf (0-5/HPF) Ur Squamous Epith Cells 0-1 /hpf (0-5/HPF) Urine Bacteria None seen (None) Ur Culture Indicated? Cult not indicated Micro UA Comment * Imaging Data Thoracic Xray: Radiologist's Impression: [address] [address] XRay Report Signed Patient: Crista Leija DMR#: [id number] : 1970Acct:[id number] Age/Sex: 49 / FDate of Service: 04/10/20 Loc: ED Accession Number: [id number] Procedure: XR thoracic spine 3V Ordering Provider: Jonn Mora D.O. PROCEDURE: XR THORACIC SPINE 3V INDICATIONS: fall with back pain TECHNIQUE: 3 views of the thoracic spine were acquired. COMPARISON: None. FINDINGS: Bones: No fractures or dislocations. No suspicious bony lesions. 12 pairs of ribs are noted, and appear intact where visualized. Gentle dextro curvature of the lower thoracic spine. Soft tissues: No paravertebral stripe thickening. IMPRESSION: Thoracic spine without acute fracture or malalignment. Gentle dextrocurvature of the lower thoracic spine likely related to patient positioning and/or concurrent muscle spasms. Dictated by: Benton Rodriguez M.D. on 04/10/2020 at 21:03 Approved by: Benton Rodriguez M.D. on 04/10/2020 at 21:05 Discharge Plan Departure Patient Disposition: Home Clinical Impression: Thoracic back pain Qualifiers: Chronicity: acute Back pain laterality: right Qualified Code(s): M54.6 - Pain in thoracic spine Discharge Date/Time: 04/10/20 21:56 Instructions: Thoracic Back Pain Activity Restrictions/Additional Instructions: *You have been diagnosed with [fall with right upper posterior thoracic pain, x- rays would suggest no fracture] *What to do: *Take medications as directed *Follow up with your primary care provider in 2-3 days, call for an appointment. Let them know you were seen in the Emergency Department and that we ask that you be seen in follow up *Return to ER if you should have any new, worsening or concerning symptoms Prescriptions: New ketorolac 10 mg tablet 10 mg PO Q6H PRN (Reason: pain) Qty: 14 RF: 0 lidocaine [Lidoderm] 5 % adhesive patch,medicated 1 patch TOP DAILY Qty: 15 RF: 0 No Action albuterol sulfate [Ventolin HFA] 90 MCG/PUFF HFA aerosol inhaler 2 puff INH Q4HP PRNQty: 1 RF: 1 epinephrine 0.3 mg/0.3 mL auto-injector 0.3 mg IM Q10M PRN (Reason: anaphylaxis) Qty: 2 RF: 0 clotrimazole-betamethasone 1-0.05 % cream 1 applictn TOP BID Qty: 45 RF: 2 citalopram 20 mg tablet 20 mg PO DAILY Qty: 90 RF: 0 hydroxyzine HCl 25 mg tablet 25 mg PO TID PRN (Reason: anxiety) Qty: 60 RF: 0 Referrals: Chelsea Peralta MD [Primary Care Provider] -
--- NOTE | 2020-04-10 20:22 | DI.RAD.S_ITS ---
PROCEDURE: XR THORACIC SPINE 3V INDICATIONS: fall with back pain TECHNIQUE: 3 views of the thoracic spine were acquired. COMPARISON: None. FINDINGS: Bones: No fractures or dislocations. No suspicious bony lesions. 12 pairs of ribs are noted, and appear intact where visualized. Gentle dextro curvature of the lower thoracic spine. Soft tissues: No paravertebral stripe thickening. IMPRESSION: Thoracic spine without acute fracture or malalignment. Gentle dextrocurvature of the lower thoracic spine likely related to patient positioning and/or concurrent muscle spasms. Dictated by: Benton Rodriguez M.D. on 04/10/2020 at 21:03 Approved by: Benton Rodriguez M.D. on 04/10/2020 at 21:05
--- NOTE | 2020-04-10 21:29 | PC.NURSE ---
Dakota lost balance and fell on boat hitting right back/rib area on corner of table.
[2020-04-10 21:31] LABS: Bacteria Urine None Seen; RBC Urine None Seen (0-5/HPF)
[2020-04-10 21:32] LABS: Appearance Urine UA CLEAR; Bilirubin Urine UA NEGATIVE (NEGATIVE); Color Urine UA YELLOW; Glucose Urine UA NEGATIVE (Negative); Ketones Urine UA TRACE (NEGATIVE); Leukocyte Esterase Urine UA NEGATIVE (NEGATIVE); Nitrite Urine UA NEGATIVE (Negative); Occult Blood Urine UA NEGATIVE (Negative); Protein Urine UA NEGATIVE (Negative); Specific Gravity Urine UA >=1.030 (1.000-1.035); Urobilinogen Urine UA 0.2 E.U./dL (0.2)
[2020-04-10] MEDS: KETOROLAC 60 MG/2 ML VIAL IM (21:39)
[2020-04-10] MEDS: LIDOCAINE PATCH 1 EACH ADH..PATCH TOP (21:39)
[2020-04-10 22:03] LABS: Culture Indicated Urine Cult Not Indicated; Squamous Epithelial Cell Urine 0-1 /HPF (0-5/HPF); WBC Urine 0-1/HPF (0-5/HPF)
== END 2020-04-10 21:56 | disposition home or self-care (01) ==
PROVIDERS: Emergency Provider Emergency Medicine; PCP Family Medicine
DX: M54.6 Pain in thoracic spine (principal); W01.190A Fall on same level from slipping, tripping and stumbling with subsequent striking against furniture, initial encounter; Y92.814 Boat as the place of occurrence of the external cause
CPT/HCPCS: 72072; 81001; 96372; 99283; J1885

== ENCOUNTER → 2020-10-14 09:15 | Outpatient (CLI) | payer OTHER, SELFPAY ==
[2020-10-14 11:18] LABS: COVID19 -Nasal RAPID Negative (Negative)
== END ==
PROVIDERS: PCP Family Medicine; Visit Provider Surgery
DX: Z01.812 Encounter for preprocedural laboratory examination (principal); Z20.828 Contact with and (suspected) exposure to other viral communicable diseases
CPT/HCPCS: 87635; C9803

== ENCOUNTER 2020-10-15 06:43 | Day surgery (SDC) | payer OTHER, SELFPAY ==
[2020-10-15] VITALS (8 sets, daily range): BP systolic 83–105; BP diastolic 51–66; PULSE 60–73; RESP 10–16; TEMP 36.2–36.6; O2SAT 96–100; BMI 28.0
--- NOTE | 2020-10-15 | PATH_ITS ---
[facility] Accession Number: [id number] . 01 Material submitted: . colon - RANDOM BIOPSIES . 01 Clinical history: . SCREENING COLONOSCOPY . 02 Diagnosis: Random Colon, Biopsies: Lymphocytic colitis. Negative for granulomas, dysplasia, and malignancy. [facility] 10/19/2020 1455 Local . 02 Electronically signed: . Glory Marr MD, Pathologist NPI- [id number] . 01 Gross description: . RANDOM BIOPSIES: Received in formalin are multiple fragment(s) of [place], soft tissue measuring 1.0 x 0.6 x 0.2 cm in aggregate submitted entirely in 1 cassette(s) /QBJ 10/16/2020 1037 Local . 02 Pathologist provided ICD-10: K52.89 . 02 CPT . 894917 Performed at: 01 [facility] [address] [id number] MD Zoltan Martines MD Phone: [phone] Performed at: 02 [facility] [address] [place], [place] [id number] MD Glory Marr MD Phone: [phone]
[2020-10-15] MEDS: SODIUM CHLORIDE 0.9% 1,000 ML 200 ML IV (07:35)
--- NOTE | 2020-10-15 07:39 | PM.HP.1 ---
History of Present Illness History of Present Illness Date Patient Seen: 10/15/20 Time Patient Seen: 07:39 Chief complaint: SCREENING COLONOSCOPY Narrative: This is a 49-year-old woman with a personal history of colon polyps and a family history of colon polyps and colon cancers. For the last few months she has had unexplained diarrhea, and nighttime incontinence on a few evenings. She recent started home a replacement therapy a few months ago, but denies any other medication changes. She denies any other new symptoms such as melena, hematochezia, unexplained weight loss, or unexplained abdominal pain. ROS: Thirteen system review is otherwise negative other than as mentioned below and in HPI. PE: GENERAL: Well groomed and cooperative. Appears stated age. Answers questions promptly and appropriately. Vital signs noted. HENT: Normocephalic, atraumatic. Hearing intact. EYES: Conjunctiva pink, sclera white, no periorbital swelling. CARDIOVASCULAR: Regular rate. No pedal edema. RESPIRATORY: Non-tachypneic, breathing comfortably on room air. GASTROINTESTINAL: Abdomen soft and non-distended GENITALURINARY: No flank tenderness. MUSCULOSKELETAL: Equal tone and mass bilaterally. SKIN: Warm, dry, soft, appropriate color for ethnicity. No other lesions, rashes, or wounds. NEURO: Alert and Oriented X 3. No gross sensory deficits, or cognitive issues. PSYCH: Appropriate affect and mood. Patient History Medical History (Updated 10/15/20 @ 07:41 by Stephanie Dickerson MD) Acne (1984) Anemia (1987) Chicken pox Chronic back pain (1989) Colon polyps (2010) CTS (carpal tunnel syndrome) (1999) Exercise-induced asthma Foot pain (2009) Hayfever (2010) Irregular periods/menstrual cycles Painful menstrual periods Shoulder pain (2009) Surgical History Anesthesia Status post delivery (08/11/90) Status post colonoscopy (01/09/11) Status post colonoscopy (10/11/15) Family & Social History Family History Grandmother Lung cancer Heart disease Hypertension High cholesterol Stroke Grandfather Heart disease Hypertension High cholesterol Diabetes mellitus Brother No problems noted. Father No problems noted. Grandfather Cirrhosis Mother No problems noted. Grandmother Colon cancer Breast cancer Social History: household members spouse Tobacco & Substance use: Smoking Status Never smoker alcohol intake current alcohol intake frequency 0-2 drinks per day Substance Use Type does not use Meds Home Medications and Allergies Home Medications Medication Instructions Recorded Confirmed Type epinephrine 0.3 mg/0.3 mL 0.3 mg IM Q10M PRN #2 each 06/24/18 10/15/20 Rx injection, auto-injector citalopram 20 mg tablet 20 mg PO DAILY #90 tab 06/02/20 10/15/20 Rx clotrimazole-betamethasone 1 1 applictn TOPICAL BID #45 gram 07/02/20 10/15/20 Rx %-0.05 % topical cream hydroxyzine HCl 25 mg tablet See Rx Instructions PO TID PRN #60 09/28/20 10/15/20 Rx tab albuterol sulfate [Ventolin HFA] 2 puff INH Q4HP PRN 10/15/20 10/15/20 History multivitamin 1 tab PO DAILY 10/15/20 10/15/20 History progesterone micronized 400 mg PO DAILY 10/15/20 10/15/20 History turmeric (bulk) [Curcumin] 1,000 ea MISCELLANEOUS DAILY 10/15/20 10/15/20 History Allergies Allergy/AdvReac Type Severity Reaction Status Date / Time No Known Drug Allergies Allergy Verified 10/15/20 07:19 Exam Vital Signs (past 8 hours): - 10/15/20 07:29 Temperature 97.8 F Pulse Rate 67 Respiratory Rate 16 Blood Pressure 103/66 Pulse Oximetry 96 Oxygen Delivery Method Room Air Assessment & Plan Assessment and plan (1) Personal history of colonic polyps: Status: Acute (2) Family history of colon cancer: Status: Acute (3) Diarrhea: Status: Acute Assessment & Plan narrative: Risks and benefits of screening colonoscopy and possible polypectomy were discussed with the patient including risk of bleeding, perforation, need for additional procedures, risks of anesthesia. The patient desires to proceed with the colonoscopy procedure. COVID-19 COVID-19 status: Negative Result date/Date tested (Pos, Neg/Pending): 10/14/20 Time Spent With Patient Time with patient: 15-24 minutes Quality VTE Deep Vein Thrombosis/Pulmonary Embolism Present on Admission: No
--- NOTE | 2020-10-15 07:44 | P.OP.ENDO_ITS ---
Operative Date/Time/Diagnoses Date of procedure: 10/15/20 Time of procedure: 07:45 Pre-op diagnosis: personal history of colon polyps, unexplained diarrhea Post-op diagnosis: other (Normal appearing colon. No evidence of polyps) Procedure & Clinicians Study performed: Colonoscopy Procedural sedation performed by the endoscopist Random biopsies to rule out microscopic colitis, taken with Jumbo forceps Same procedure as scheduled: Yes Indications: Personal history of colon polyps, family history of colon cancer, personal history of unexplained diarrhea Surgeon: Stephanie Dickerson Procedure Notes SCOAP/Timeout: Performed Procedure in detail: The patient was brought to the room and placed in left lateral decubitus position with all bony prominences padded. A time-out was performed and then the patient was given procedural sedation starting with 3 mg of Versed and 100 mcg of fentanyl. A total of 7 mg of Versed and 150 micro g of fentanyl were given for the entire procedure. Vitals were monitored throughout the procedure and remained stable. Once adequately sedated, the procedure was begun. A rectal exam was performed revealing no abnormalities. The colonoscope was then introduced to the rectum and advanced to the cecum in the usual fashion. The cecum was identified by the appendiceal orifice, the mucosal tri- fold, and the ileocecal valve. The scope was then retracted while rotating side to side and examining each mucosal fold. The colon appeared normal. Random biopsies were taken throughout the ascending, transverse, descending, sigmoid, and rectum to rule out microscopic colitis. At the conclusion of the procedure retroflexion was performed and small grade 1-2 internal hemorrhoids without stigmata of bleeding were seen. The scope was then withdrawn from the rectum the procedure was concluded. The patient tolerated the procedure well and was transferred to the PACU in stable condition. Scope withdrawal time: 10 Sedation minutes: 22 Specimen(s): other (Random biopsies) Complications: none Impression: Normal appearing colon Post-procedure Recommendations: Colonscopy in 5 years (Due to personal history of colon polyps and high risk family history) and Other recommendation (Will send a letter with biopsy results, and further recommendations as appropriate based on biopsies) Follow up: as needed Disposition: PACU
[2020-10-15] MEDS: fentaNYL 250 MCG/5 ML INJ IV (07:54)
[2020-10-15] MEDS: MIDAZOLAM 5 MG/5 ML VIAL IV (08:07)
== END 2020-10-15 08:54 | disposition home or self-care (01) ==
PROVIDERS: PCP Family Medicine; Referring Provider Family Medicine; Visit Provider Surgery
PROC: 0DJD8ZZ Inspection of Lower Intestinal Tract, Via Natural or Artificial Opening Endoscopic (ICD-10-PCS; CPT 45378; principal; 2020-10-15 07:45)
DX: K52.832 Lymphocytic colitis (principal)
CPT/HCPCS: 45380; 99152; J2250; J3010

== ENCOUNTER → 2020-11-19 09:50 | Outpatient (CLI) | payer OTHER, SELFPAY ==
[2020-11-19 15:08] LABS: Clostridium Difficile Tox PCR Negative for C. diff
== END ==
PROVIDERS: PCP Family Medicine; Referring Provider Family Medicine; Visit Provider Family Medicine
DX: R19.7 Diarrhea, unspecified (principal)
CPT/HCPCS: 87329; 87493

== ENCOUNTER → 2020-12-31 10:23 | Outpatient (CLI) | payer OTHER, SELFPAY ==
--- NOTE | 2020-12-31 | DI.MG.S_ITS ---
BILATERAL DIGITAL SCREENING MAMMOGRAM 3D/2D WITH CAD: 12/31/2020 CLINICAL: Routine screening. Family history of breast cancer. Comparison is made to exams dated: 02/07/2019 mammogram, 12/28/2017 mammogram, and 08/06/2015 mammogram - [facility]. The tissue of both breasts is heterogeneously dense. This may lower the sensitivity of mammography. Current study was also evaluated with a Computer Aided Detection (CAD) system. No significant masses, calcifications, or other findings are seen in either breast. There has been no significant interval change. IMPRESSION: NEGATIVE There is no mammographic evidence of malignancy. A 1 year screening mammogram is recommended. This exam was interpreted at Station ID: [id number]. NOTE: For mammograms, a report in lay terms will be sent to the patient. Approximately 15% of breast malignancies will not be visualized mammographically. In the management of a palpable breast mass, a negative mammogram must not discourage biopsy of a clinically suspicious lesion. Electronically Signed By: Benton guevara/carol:12/31/2020 12:24:26 letter sent: Normal Exam ACR BI-RADS Category 1: Negative 3341F
== END ==
PROVIDERS: PCP Family Medicine; Referring Provider Family Medicine; Visit Provider Family Medicine
DX: Z12.31 Encounter for screening mammogram for malignant neoplasm of breast (principal); Z80.3 Family history of malignant neoplasm of breast
CPT/HCPCS: 77063; 77067

== ENCOUNTER → 2022-07-26 18:21 | Outpatient (CLI) | payer OTHER, SELFPAY ==
--- NOTE | 2022-07-26 18:23 | DI.RAD.S_ITS ---
PROCEDURE: XR TIBIA FUBULA RT 2V INDICATIONS: Right tibia pain TECHNIQUE: 2 views of the tibia and fibula were acquired. COMPARISON: None. FINDINGS: Bones: No fractures or dislocations. No suspicious bony lesions. Soft tissues: Benign-appearing subcutaneous calcifications noted anteriorly. IMPRESSION: No evidence of fracture or retained foreign body. Benign subcutaneous calcifications. Approved by: Jesse Woo M.D. on 07/27/2022 at 10:56
== END ==
PROVIDERS: Family Provider Family Medicine; PCP Family Medicine; Referring Provider Nurse Practitioner Family; Visit Provider Nurse Practitioner Family
DX: S89.91XA Unspecified injury of right lower leg, initial encounter (principal); L94.2 Calcinosis cutis; X58.XXXA Exposure to other specified factors, initial encounter
CPT/HCPCS: 73590

== ENCOUNTER → 2022-11-17 07:56 | Outpatient (CLI) | payer OTHER, SELFPAY ==
--- NOTE | 2022-11-17 | DI.MG.S_ITS ---
BILATERAL DIGITAL SCREENING MAMMOGRAM 3D/2D WITH CAD: 11/17/2022 CLINICAL: Routine screening. Family history of breast cancer. Comparison is made to exams dated: 12/31/2020 mammogram, 02/07/2019 mammogram, 12/28/2017 mammogram, 08/06/2015 mammogram, and 01/11/2018 mammogram - [facility]. Both breasts are heterogeneously dense, which may obscure small masses (category c / 51-75% glandular tissue). Current study was also evaluated with a Computer Aided Detection (CAD) system. No significant masses, calcifications, or other findings are seen in either breast. There has been no significant interval change. IMPRESSION: NEGATIVE There is no mammographic evidence of malignancy. A 1 year screening mammogram is recommended. Based on the Tyrer Cuzick model (a risk assessment model) the patient's lifetime risk is 13.7% and her 10 year risk is 3.6%. According to the ACR, ACS, and NCCN guidelines, an annual breast MRI exam along with mammogram is recommended if the patient's lifetime risk is 20% or greater. This exam was interpreted at Station ID: [id number]. NOTE: For mammograms, a report in lay terms will be sent to the patient. Approximately 15% of breast malignancies will not be visualized mammographically. In the management of a palpable breast mass, a negative mammogram must not discourage biopsy of a clinically suspicious lesion. Electronically Signed By: Gokul Laughlin M.D., jr/carol:11/17/2022 13:55:25 letter sent: Normal Exam ACR BI-RADS Category 1: Negative 3341F
== END ==
PROVIDERS: Family Provider Family Medicine; PCP Family Medicine; Referring Provider Nurse Practitioner Family; Visit Provider Nurse Practitioner Family
DX: Z12.31 Encounter for screening mammogram for malignant neoplasm of breast (principal); Z80.3 Family history of malignant neoplasm of breast
CPT/HCPCS: 77063; 77067

== ENCOUNTER → 2025-10-16 11:46 | Outpatient (CLI) | payer OTHER, SELFPAY ==
--- NOTE | 2025-10-16 11:48 | DI.MG.S_ITS ---
MM screening mammo BI: 10/16/2025. BI-RADS: 1 CLINICAL: 54-year old female for bilateral screening mammogram. Tyrer-Cuzick lifetime risk of 10.1%. No personal or first-degree family history of breast cancer. Current reported family history of breast cancer: paternal grandmother. PRIOR EXAMS 11/17/2022, 12/31/2020, 02/07/2019, 01/11/2018. MAMMOGRAPHY TECHNIQUE: 2D and 3D (tomosynthesis) digital mammographic views obtained, with additional images as needed for full coverage. Current study was also evaluated with a Computer Aided Detection (CAD) system. DENSITY C. The breasts are heterogeneously dense, which may obscure small masses. MAMMOGRAPHY FINDINGS Bilateral: No suspicious mass, asymmetry, microcalcification, or other abnormality seen. IMPRESSION: * No evidence of malignancy. RECOMMENDATIONS Bilateral * Annual screening mammography. OVERALL ASSESSMENT CATEGORY BI-RADS-1: Negative. The [employer] recommends annual screening mammography beginning at age 40 for women with average risk of breast cancer. ELECTRONICALLY SIGNED: Benton Rodriguez M.D. on 10/17/2025 at 02:18:06 PM PT Interpreting Station ID: [id number]
== END ==
LOC: MAMMO 11:48
PROVIDERS: PCP Family Medicine; Referring Provider Family Medicine; Visit Provider Family Medicine
DX: Z12.31 Encounter for screening mammogram for malignant neoplasm of breast (principal); R92.333 Mammographic heterogeneous density, bilateral breasts; Z80.3 Family history of malignant neoplasm of breast
CPT/HCPCS: 77063; 77067